=== PATIENT | female | born 1945 | race Caucasian/White ===

== ENCOUNTER 2016-09-20 18:55 | Observation (INO) | payer OTHER ==
[~2016-09-20] VITALS: Ht 152.4 cm; Wt 57.6 kg
--- NOTE | ~2016-09-20 | EXE ---
[facility] [place] [address] STRESS ECHOCARDIOGRAM Name: LASHELL SALAZAR Room #: 443-P ADM IN M.R.#: [id number] Admission: 09/20/16 Attend Phys: Nyla Burgess Discharge: Date of : 41 Date of Service: 09/21/16 1238 Report #: [id number] THIS REPORT FOR: //name// APPROVED REPORT Exam: Stress Echocardiogram Indication: Chest pain Patient Location: Echo lab Stress Nurse: Aysha Bear Room #: 443 Status: routine HR: 78 bpm Rhythm: NSR Medical History Cardiac Risk Factors: HTN, Hyperlipidemia Procedure The patient underwent an Exercise Stress Test using the Alexandru Protocol. Blood pressure, heart rate, and EKG were monitored. An Echocardiogram was performed by neurology technician in four stages in quad fashion. At peak stress, four selected images were obtained and placed side by side with resting images for comparison. Stress Test Details Stress Test: Exercise stress testing was performed using a Alexandru protocol. HR Resting HR: 78 bpm Max Heart Rate (APMHR): 147 bpm Max HR Achieved: 164 bpm Target HR (85% APMHR): 124 bpm % of APMHR: 111 Recovery HR: 97 bpm HR response to stress: Normal HR response to stress BP Resting BP: 116/60 mmHg Max BP: 150/84 mmHg Recovery BP: 118/80 mmHg ECG Resting ECG: Sinus Rhythm Stress ECG: Sinus Rhythm Arrhythmia: None Recovery ECG: Sinus Rhythm [facility] [address] [place] [address] STRESS ECHOCARDIOGRAM Name: LASHELL SALAZAR Room #: 443-P ADM IN M.R.#: [id number] Admission: 09/20/16 Attend Phys: Nyla Burgess Discharge: Date of : 41 Date of Service: 09/21/16 1238 Report #: [id number] Clinical Reason for Termination: Target heart rate achieved. Stress Symptoms: None Exercise duration: 9 min sec Exercise capacity: 10.10 METs Stress ECG Conclusion 1. SUBJECTIVELY NEGATIVE FOR ISCHEMIA 2. ELECTROCARDIOGRAPHICALLY NEGATIVE FOR ISCHEMIA Pre-Stress Echo The resting Echocardiogram showed normal left ventricular contractility with an estimated Ejection Fraction of about 60%. Mild MR, Trace TR Post-Stress Echo The stress Echocardiogram showed normal left ventricular contractility with an estimated Ejection Fraction of about >70%. Normal augmentation of wall motion in all segments on post stress images. Clinical No clinical or ECG evidence for ischemia. Conclusion Clinical Response: Non-ischemic Exercise Capacity: Superior Stress ECG Response: Non-ischemic Stress Echo Images: Non-ischemic 1. LOW RISK STUDY Other Information Study Quality: Adequate <Conclusion> 1. LOW RISK STUDY <ELECTRONICALLY SIGNED> By: Keith Almodovar MD 09/21/16 1238 1238 1238 Keith Almodovar MD /INF
--- NOTE | ~2016-09-20 | EKG ---
[place] [address] [facility] [email or web address] [address] ELECTROCARDIOGRAM REPORT Name: LASHELL SALAZAR Room #: 443-P [facility].R.#: [id number] Admission: 09/20/16 Attend Phys: Nyla Todd Discharge: Date of : 41 Report #: [id number] THIS REPORT FOR: //name// [facility] ED Test Date: 2016-09-20 Test Time: 19:11:08 Pat Name: LASHELL SALAZAR Department: Room: 443 Gender: F Business Architect: MZOOK : 1945 Requested By: Musa Colvin Order Number: [id number] MD: Balaji Griffith Measurements Intervals [place] Rate: 81 P: 25 WA: 149 QRS: -30 QRSD: 87 T: 3 QT: 389 QTc: 452 Interpretive Statements Sinus rhythm Probable left atrial enlargement Left axis deviation Nonspecific T abnormalities, anterior leads No previous ECG available for comparison Electronically Signed On 09-21-2016 8:45:58 CDT by Balaji Griffith [email or web address] <ELECTRONICALLY SIGNED> By: Balaji Griffith MD, [facility] 09/21/16 0845 10 10 Balaji Griffith MD, [facility] /EPI
[2016-09-20 19:09] VITALS: BP 170/97
[2016-09-20 19:44] LABS: ABSOLUTE NEUTROPHILS 6.7 thou/uL (1.4-8.2); BASOPHILS 0.7 % (0.0-2.0); EOSINOPHILS 3.1 % (0.0-3.0); HEMATOCRIT 42.8 % (37.0-47.0); HEMOGLOBIN 14.6 gm/dL (12.0-15.0); LYMPHOCYTES 28.2 % (24.0-44.0); MCH 32.5 pg (26.0-34.0); MCHC 34.2 g/dL (28.0-37.0); MCV 95.2 fL (80.0-100.0); MONOCYTES 9.7 % (1.0-8.0); POLYS 58.3 % (36.0-66.0); RBC 4.49 mil/uL (4.20-5.00); RDW 14.3 % (10.5-14.5); WBC 12.1 thou/uL (4.0-11.0)
[2016-09-20 19:45] LABS: MANUAL DIFF NO
[2016-09-20 20:10] LABS: PLATELET COUNT 219 thou/uL (150-400)
[2016-09-20] MEDS ORDERED: ZOCOR20 MG PO (20:12)
[2016-09-20] MEDS ORDERED: AMLODIPINE BESY10 MG PO (20:12)
[2016-09-20] MEDS ORDERED: ASPIR 8181 M1 PO (20:13)
[2016-09-20] MEDS ORDERED: PAXIL10 MG PO (20:13)
[2016-09-20 20:30] LABS: ANION GAP 8 mmol/L (7-16); BUN 19 mg/dL (7-18); CALCIUM 9.3 mg/dL (8.5-10.1); CHLORIDE 103 mmol/L (98-107); CO2 27 mmol/L (21-32); CREATININE 0.6 mg/dL (0.6-1.0); GLUCOSE 97 mg/dL (74-106); POTASSIUM 4.1 mmol/L (3.5-5.1); SODIUM 138 mmol/L (136-145)
[2016-09-20 20:38] LABS: TROPONIN-I < 0.04 ng/mL (<0.04-0.07)
[2016-09-20 21:13] LABS: ALBUMIN 3.9 g/dL (3.4-5.0); DIRECT BILIRUBIN 0.1 mg/dL (<0.1-0.3); TOTAL BILIRUBIN 0.5 mg/dL (<0.1-1.0)
[2016-09-21 00:05] VITALS: BP 127/63
[2016-09-21 00:20] VITALS: BP 129/75
[2016-09-21 04:49] VITALS: BP 108/60
[2016-09-21 07:41] LABS: HEMATOCRIT 38.1 % (37.0-47.0); HEMOGLOBIN 13.1 gm/dL (12.0-15.0); MCH 32.4 pg (26.0-34.0); MCHC 34.3 g/dL (28.0-37.0); MCV 94.5 fL (80.0-100.0); RBC 4.04 mil/uL (4.20-5.00); WBC 7.5 thou/uL (4.0-11.0)
[2016-09-21 08:00] VITALS: BP 116/60
[2016-09-21 08:04] LABS: ANION GAP 10 mmol/L (7-16); BUN 14 mg/dL (7-18); CALCIUM 8.7 mg/dL (8.5-10.1); CHLORIDE 104 mmol/L (98-107); CO2 26 mmol/L (21-32); CREATININE 0.5 mg/dL (0.6-1.0); GLUCOSE 87 mg/dL (74-106); POTASSIUM 4.1 mmol/L (3.5-5.1); SODIUM 140 mmol/L (136-145); TROPONIN-I < 0.04 ng/mL (<0.04-0.07)
[2016-09-21] MEDS ORDERED: PANTOPRAZOLE SO40 M1 PO (13:50)
[2016-09-21 13:52] VITALS: BP 116/60
== END 2016-09-21 14:05 | disposition home or self-care (01) ==
LOC: ER 18:55 → EROBS 23:39 → 4S 09-21 00:14
PROVIDERS: Emergency Medicine; Nurse Practitioner Family
DX: R07.89 Other chest pain (principal); I10 Essential (primary) hypertension; E78.5 Hyperlipidemia, unspecified; I25.2 Old myocardial infarction

== ENCOUNTER 2018-12-27 15:44 | Inpatient (IN) | payer OTHER, MEDICARE ==
[~2018-12-27] VITALS: Ht 149.9 cm; Wt 65.8 kg
[~2018-12-27 15:44] MED LIST: AMLODIPINE BESY10 MG PO; ASPIR 8181 M1 PO; PANTOPRAZOLE SO40 M1 PO; PAXIL10 MG PO; ZOCOR20 MG PO
[2018-12-27 15:46] VITALS: BP 167/99
[2018-12-27] MEDS ORDERED: ASPIR 8181 M1 PO (16:04)
[2018-12-27] MEDS ORDERED: LOVAZA1000 MG PO (16:04)
[2018-12-27] MEDS ORDERED: BENAZEPRIL HCL20 MG PO (16:04)
[2018-12-27] MEDS ORDERED: PRAVACHOL40 MG PO (16:04)
[2018-12-27] MEDS ORDERED: NAPROSYN500 MG PO (16:04)
[2018-12-27] MEDS ORDERED: CYMBALTA20 MG PO (16:05)
--- NOTE | 2018-12-27 16:52 | EKG ---
[facility] [employer] [address] [place] [address] ELECTROCARDIOGRAM REPORT Name: LASHELL SALAZAR Room #: REG [facility]#: [id number] Admission: 12/27/18 Attend Phys: Discharge: Date of : 41 Report #: [id number] THIS REPORT FOR: //name// [facility] ED Test Date: 2018-12-27 Test Time: 15:49:44 Pat Name: LASHELL SALAZAR Department: Room: Gender: F Carpet Installer: yessi : 1945 Requested By: Gilma Flores Order Number: [id number] MD: Balaji Griffith Measurements Intervals [place] Rate: 88 P: 0 ND: 148 QRS: -24 QRSD: 91 T: -10 QT: 370 QTc: 448 Interpretive Statements Sinus rhythm Abnormal R-wave progression, early transition Nonspecific ST and T wave abnormality Compared to ECG 09/20/2016 19:11:08 Nonspecific change in the ST and T-wave segments Electronically Signed On 12-27-2018 16:51:57 CDT by Balaji Griffith [email or web address] <ELECTRONICALLY SIGNED> By: Balaji Griffith MD, [facility] 12/27/18 1651 1549 1549 Balaji Griffith MD, [facility] /EPI
[2018-12-27 18:11] LABS: ABSOLUTE NEUTROPHILS 5.1 thou/uL (1.4-8.2); BASOPHILS 0.7 % (0.0-2.0); EOSINOPHILS 0.5 % (0.0-3.0); HEMATOCRIT 41.8 % (37.0-47.0); HEMOGLOBIN 14.2 gm/dL (12.0-15.0); LYMPHOCYTES 21.6 % (24.0-44.0); MCH 33.5 pg (26.0-34.0); MCHC 33.9 g/dL (28.0-37.0); MCV 98.8 fL (80.0-100.0); MONOCYTES 7.5 % (1.0-8.0); PLATELET COUNT 271 thou/uL (150-400); POLYS 69.7 % (36.0-66.0); RBC 4.23 mil/uL (4.20-5.00); WBC 7.3 thou/uL (4.0-11.0)
[2018-12-27 18:30] LABS: ALBUMIN 3.6 g/dL (3.4-5.0); ANION GAP 10 mmol/L (7-16); BUN 7 mg/dL (7-18); CHLORIDE 92 mmol/L (98-107); CO2 25 mmol/L (21-32); CREATININE 0.6 mg/dL (0.6-1.0); DIRECT BILIRUBIN 0.1 mg/dL (<0.1-0.3); GLUCOSE 95 mg/dL (74-106); POTASSIUM 3.7 mmol/L (3.5-5.1); SGOT 28 U/L (15-37); SGPT 28 U/L (30-65); SODIUM 127 mmol/L (136-145); TOTAL BILIRUBIN 0.4 mg/dL (<0.1-1.0); TOTAL PROTEIN 6.6 g/dL (6.4-8.2); TROPONIN-I <0.06 ng/mL (<0.06)
[2018-12-27 20:06] VITALS: BP 163/98
[2018-12-27 20:30] VITALS: BP 141/96; BP 149/86
[2018-12-28 01:53] VITALS: BP 115/65
[2018-12-28 03:11] VITALS: BP 109/67
--- NOTE | 2018-12-28 04:27 | NUR ---
PT ADMITTED AT 2029. PT C/O CHEST PAIN AND EPIGASTRIC PAIN. GAVE MORPHINE PER MAY AND PT GOT HEADACHE. ANITNAUSEA MEDICATION GIVEN. PT VSS. PT WILL HAVE STRESS TEST IN AM. WILL CONITNUE TO MONITOR PAIN AND PT PER POC.
[2018-12-28 08:00] VITALS: BP 111/73
--- NOTE | 2018-12-28 11:49 | EXE ---
[facility] [employer] [place] [address] STRESS ECHOCARDIOGRAM Name: DARRELDARALASHELL SAÚL Room #: 201-P [facility] IN M.R.#: [id number] Admission: 12/27/18 Attend Phys: Agustín Lechuga MD Discharge: Date of : 41 Report #: [id number] THIS REPORT FOR: //name// APPROVED REPORT Study performed: 12/28/2018 09:41:45 Exam: Stress Echocardiogram Indication: Chest pain Patient Location: Echo lab Stress Nurse: Karo FRANKEL Room #: 201 Status: routine Ht: 4 ft 11 in HR: 77 bpm BP: 120/86 mmHg Rhythm: NSR Medical History Medical History: HTN, Hyperlipidemia Cardiac Risk Factors: HTN, Hyperlipidemia, FHX of CAD Exercise History: Physically active Procedure The patient underwent an Exercise Stress Test using the Alexandru Protocol. Blood pressure, heart rate, and EKG were monitored. An Echocardiogram was performed by agricultural technician in four stages in quad fashion. At peak stress, four selected images were obtained and placed side by side with resting images for comparison. Stress Test Details Stress Test: Exercise stress testing was performed using a Alexandru protocol. HR Resting HR: 77 bpm Max Heart Rate (APMHR): 145 bpm Max HR Achieved: 184 bpm Target HR (85% APMHR): 123 bpm % of APMHR: 126 Recovery HR: 96 bpm HR response to stress: Normal HR response to stress BP Resting BP: 120/86 mmHg Max BP: 170/112 mmHg Recovery BP: 126/62 mmHg BP response to stress: Normal blood pressure response to [facility] [address] [place] [address] STRESS ECHOCARDIOGRAM Name: LASHELL SALAZAR SAÚL Room #: 201-P [facility] IN ..#: [id number] Admission: 12/27/18 Attend Phys: Agustín Lechuga MD Discharge: Date of : 41 Report #: [id number] stress. ECG Clinical Reason for Termination: Maximal effort Exercise duration: 5 min sec Highest Stage Achieved: Stage 2: 2.5 mph at 12% grade. Exercise capacity: 7.0 METs Overall Exercise Capacity for Age: Normal Pre-Stress Echo The resting Echocardiogram showed normal left ventricular contractility with an estimated Ejection Fraction of about >55%. The resting echocardiogram demonstrated normal wall motion in all wall segments. Post-Stress Echo The stress Echocardiogram showed normal left ventricular contractility with an estimated Ejection Fraction of about 65-70%. Compared to rest, there were no stress-induced wall motion abnormalities. Conclusion Clinical Response: Non-ischemic Exercise Capacity: Average Stress ECG Response: Non-ischemic Stress Echo Images: Non-ischemic Other Information Study Quality: Adequate <ELECTRONICALLY SIGNED> By: Ludwig Ospina MD, FACC 12/28/18 1148 1148 1148 Ludwig Ospina MD, FACC /INF
[2018-12-28 12:00] VITALS: BP 130/83
[2018-12-28 16:00] VITALS: BP 145/86
--- NOTE | 2018-12-28 16:48 | NUR ---
PT CARE ASSUMED APPROX 0700. PT ALERT AND ORIENTED X4. DENIES PAIN AND SOA. VSS. UP WITH STEADY GAIT. COMPLETED DIAGNOSTIC STUDIES WITHOUT ISSUES. ANOTHER TEST SCHEDULED FOR TOMORROW. PT DENIES QUESTIONS OR CONCERNS REGARDING POC, TESTS OR RESULTS. TOLERATING FULL LIQUID DIET. NO DISTRESS NOTED.
[2018-12-28 19:00] VITALS: BP 128/78
[2018-12-29 04:31] VITALS: BP 121/74
[2018-12-29 05:18] LABS: HEMATOCRIT 39.9 % (37.0-47.0); HEMOGLOBIN 13.5 gm/dL (12.0-15.0); MCH 33.7 pg (26.0-34.0); MCHC 33.9 g/dL (28.0-37.0); MCV 99.3 fL (80.0-100.0); RBC 4.02 mil/uL (4.20-5.00); RDW 14.8 % (10.5-14.5); WBC 6.3 thou/uL (4.0-11.0)
[2018-12-29 05:47] LABS: CALCIUM 8.6 mg/dL (8.5-10.1); CREATININE 0.6 mg/dL (0.6-1.0); POTASSIUM 3.7 mmol/L (3.5-5.1)
--- NOTE | 2018-12-29 06:48 | NUR ---
ASSUMED PT CARE AT 1900. PT WAS SLEEPING. PT VSS AND C/O PAIN TO HEAD AND NECK. PT REFUSED TYLENOL AND WENT BACK TO SLEEP. PT WILL HAVE PROCEDURE THIS AM AND NPO SINCE MIDNIGHT. WILL CONTINUE TO MONITOR PT PER POC.
[2018-12-29 07:20] VITALS: BP 120/64
[2018-12-29] MEDS ORDERED: PROTONIX40 M1 PO (11:13)
[2018-12-29] MEDS ORDERED: HYDROCODON-ACE1 EAC7 PO (11:13)
[2018-12-29 11:57] VITALS: BP 143/72
--- NOTE | 2018-12-29 14:06 | NUR ---
Pt dcing home today. Dtr at bedside and they have visited with GI regarding f/u recommendations. HH RN recommended at dc;however the pt goes to outpt therapy 3xwkly as well as to congregation and the store. She does not anticipate being homebound. Dtr seems very involved and has several dr appts setup in the next few weeks for neurology f/u and pain mngt for neck issues. Both in agreement to defer HH referral. They will call the pt's pcp Dr Brown should she not be able to get out for therapy or appts. Pt is up ad carly and steady on her feet. Dtr helping keep track of appts, meds and f/u care. No cm interventions indicated at this time.
[2018-12-29 14:10] VITALS: BP 143/72
[2018-12-29 14:49] VITALS: BP 143/72
--- NOTE | 2018-12-29 15:33 | NUR ---
ASSUMMED PT CARE AT APPROXIMATELY 0700. PT A&O X4. FALL PRECAUTIONS IN PLACE. ASSESSMENT CHARTED. PT AMBULATES STEADY/INDEPENDENT. PT STATED SHE DID NOT HAVE CHEST PAIN. PT STATED SHE IS NOT SOB. PT STATED SHE DID HAVE A HEADACHE. PT DID RECEIVE ANALGESICS TO HELP WITH PAIN. PT STATED ANALGESICS HELPED RELEIVE PAIN. TELE DC. IV DC. PT DISCHARGING HOME WITH DAUGHTER. PT AND DAUGHTER RECEIVED DISCHARGE EDUCATION. PT AND DAUGHTER STATED UNDERSTANDING AND DENIED HAVING FURTHER QUESTIONS. PT DENIED HAVING CONCERNS. PT RECEIVING HOSPITAL TRANSPORT OFF UNIT. PT OFF UNIT AT APPROXIMATELY 1535. VITAL SIGNS STABLE. BLOOD SUGARS STABLE.
--- NOTE | 2018-12-29 22:00 | P ---
[facility] [place] [address] PROCEDURE REPORT Name: LASHELL SALAZAR Room #: 201-P [facility] IN M.R.#: [id number] Admission: 12/27/18 Attend Phys: Agustín Lechuga MD Discharge: 12/29/18 Date of : 41 Report #: [id number] THIS REPORT FOR: //name// CC: Agustín Gutierrez DATE OF SERVICE: 12/28/[address] Conrad Gutierrez and Dr. Agustín Lechuga. INDICATION FOR PROCEDURE: This patient has been having quite a bit of difficulty with substernal chest pain. She had a stress echo done that revealed no abnormalities with a good ejection fraction. It is thought that most likely this is a pain of GI origin, so we are asked to see her and evaluate for possible gastrointestinal etiologies of her complaints. The patient states that she had 2 black out spells about 3 weeks ago and etiology of these were unclear, but she was told that they thought she had a small stroke or TIA. She has been on 2 new medications, at least one is Cymbalta and I do not know what the other one is, but she says that in the last few weeks, she has been experiencing increasing bruising. She has bruises all over her arms and her legs. I am suspicious that maybe this other medication is some type of blood thinner and I am reluctant to do any biopsies during this procedure because of that possibility. Informed consent for this procedure was obtained prior to the administration of any medication. The risks of the procedure, which include bleeding, perforation, infection, complications of sedation and the possibility I could miss something were explained to the patient and she has indicated her consent by signing. Propofol was slowly titrated before and during this procedure for patient comfort by the anesthesia service. The Olympus upper videoscope was introduced through the upper esophageal sphincter and advanced under direct visualization to the third portion of the duodenum. Findings are noted on withdrawal of the scope. The entire second portion of the duodenum and the visualized third portion of the duodenum are covered with white ulcerations that are nonbleeding without any visible vessels. These were very shallow ulcerations. The duodenal bulb was similarly covered. Multiple pictures are taken of these areas. There is no evidence of any bleeding. Pylorus, erythematous mucosa. Antrum, erythematous mucosa with erosions. Body, normal mucosa. Cardia and fundus, normal mucosa. The patient does have a moderately sized hiatal hernia that does contain erosions. The scope was withdrawn into the esophagus. The Z-line is appropriately located at the top of the gastric folds and appears normal. The esophageal mucosa appears normal throughout its entirety. In addition, the patient describes symptoms of gastroparesis with early satiety [address] [address] PROCEDURE REPORT Name: LASHELL SALAZAR SAÚL Room #: 201-P [facility] IN M.R.#: [id number] Admission: 12/27/18 Attend Phys: Agustín Lechuga MD Discharge: 12/29/18 Date of : 41 Report #: [id number] after three bites of food. She has been unable to eat an entire meal. She thinks this started about 3 weeks ago after her TIA. No biopsies were taken as I am unsure if the patient is on blood thinners. She described some new medications recently that she received after having two blackout spells 3 weeks ago. The etiology of these is unclear, possibly a TIA or CVA. RECOMMENDATIONS: For her to now be on proton pump inhibitors, avoid Aleve and naproxen, take Tylenol p.r.n. for pain. We will ask that she have a stool for H. pylori antigen and tomorrow morning, we will get a nuclear medicine gastric emptying study to evaluate for gastroparesis. Thank you very much once again for allowing me to participate in her care, Dr. Lechuga and Dr. Gutierrez. <ELECTRONICALLY SIGNED> By: Sydni Srivastava DO 12/29/18 2200 1519 0810 Sydni Srivastava DO /nt
== END 2018-12-29 15:50 | disposition home or self-care (01) | DRG 384 ==
LOC: ER 15:44 → 2N 19:06 → EROBS 19:06 → 2N 20:17 → ENTRNSPT 12-29 15:31 → EDTRNSPTSTS 12-29 15:32 → 2N 12-29 15:50
PROVIDERS: Emergency Medicine; ADMIT Hospitalist
PROC: 0DJ08ZZ Inspection of Upper Intestinal Tract, Via Natural or Artificial Opening Endoscopic (ICD-10-PCS; principal; 2018-12-28)
DX: K26.9 Duodenal ulcer, unspecified as acute or chronic, without hemorrhage or perforation (principal); K29.70 Gastritis, unspecified, without bleeding; I10 Essential (primary) hypertension; E78.5 Hyperlipidemia, unspecified; Z60.2 Problems related to living alone; G89.29 Other chronic pain; M54.9 Dorsalgia, unspecified; K44.9 Diaphragmatic hernia without obstruction or gangrene; I25.10 Atherosclerotic heart disease of native coronary artery without angina pectoris; K29.60 Other gastritis without bleeding; T39.395A Adverse effect of other nonsteroidal anti-inflammatory drugs [NSAID], initial encounter; Y92.89 Other specified places as the place of occurrence of the external cause; Z88.1 Allergy status to other antibiotic agents; Z88.0 Allergy status to penicillin; Z88.8 Allergy status to other drugs, medicaments and biological substances; Z82.49 Family history of ischemic heart disease and other diseases of the circulatory system; Z90.49 Acquired absence of other specified parts of digestive tract; Z79.82 Long term (current) use of aspirin; Z79.899 Other long term (current) drug therapy; Z90.710 Acquired absence of both cervix and uterus; Z79.1 Long term (current) use of non-steroidal anti-inflammatories (NSAID); Z28.21 Immunization not carried out because of patient refusal
CPT/HCPCS: 10081; 62110; 62900; 70005